=== PATIENT | female | born 1960 | race American Indian/Alaskan Native ===

== ENCOUNTER 2017-07-23 01:02 | Emergency (ER) | payer MEDICARE ==
[2017-07-23 02:31] LABS: Basophils % (Auto) 0.4 % (0.0-1.8); Eosinophils % (Auto) 0.6 % (0.0-4.3); Hematocrit 42.7 % (30.3-42.9); Hemoglobin 14.3 gm/dl (10.1-14.3); Lymphocytes # (Auto) 1.5 K/mm3 (1.2-5.4); Lymphocytes % (Auto) 22.7 % (13.4-35.0); Mean Corpuscular HGB Conc 33 % (30-34); Mean Corpuscular Hemoglobin 28 pg (28-32); Mean Corpuscular Volume 84 fl (79-97); Monocytes # (Auto) 0.5 K/mm3 (0.0-0.8); Monocytes % (Auto) 7.3 % (0.0-7.3); Platelet Count 412 K/mm3 (140-440); Red Blood Count 5.08 M/mm3 (3.65-5.03); Red Cell Distribution Width 16.1 % (13.2-15.2)
[2017-07-23 02:36] LABS: Bilirubin,Urine NEG (Negative); Blood,Urine MOD (Negative); Color,Urine Yellow (Yellow); Mucus,Urine FEW /HPF; Protein,Urine <15 mg/dL mg/dL (Negative); Urobilinogen,Urine < 2.0 mg/dL (<2.0)
[2017-07-23 02:48] LABS: Albumin 4.3 g/dL (3.9-5); Calcium 10.1 mg/dL (8.4-10.2)
[2017-07-23] MEDS ORDERED: ZOFRAN IV ONE (03:18)
[2017-07-23] MEDS ORDERED: MORPHINE IV ONE (03:18)
--- NOTE | 2017-07-23 03:23 | Emergency Department Report ---
HPI - General Chief Complaint: Abdominal Pain Time Seen by Provider: 07/23/17 02:50 - HPI HPI: 56-year-old female presents to the emergency department with complaint of epigastric and/or upper abdominal pain that started this evening around 11 PM. She has some associated nausea with one episode of vomiting. The pain radiates to the back. She denies any fever, dysuria, vaginal bleeding or discharge. No recent travel or sick contacts at home. She has not taken anything for her symptoms prior to presentation. She has a past mental history of diabetes, GERD, gastroparesis, fatty liver disease. Her primary care physician is a Dr. Davis. ED Past Medical Hx - Past Medical History Previous Medical History?: Yes Hx Hypertension: Yes Hx Diabetes: Yes Hx GERD: Yes Hx Arthritis: Yes (OA, RA) Additional medical history: Gastroparesis, Fatty liver, Degenerative disk disease - Surgical History Past Surgical History?: Yes Additional Surgical History: Left Knee Replacement - Social History Smoking Status: Never Smoker - Medications Home Medications: Home Medications Medication Instructions Recorded Confirmed Last Taken Type Omeprazole Magnesium [PriLOSEC Otc] 20 mg PO QDAY #20 tablet. 07/23/17 Unknown Rx ED Review of Systems ROS: Stated complaint: ABD PAIN Other details as noted in HPI Comment: All other systems reviewed and negative Constitutional: denies: chills, fever Eyes: denies: eye pain, eye discharge, vision change ENT: denies: ear pain, throat pain Respiratory: denies: cough, shortness of breath, wheezing Cardiovascular: denies: chest pain, palpitations Gastrointestinal: abdominal pain, nausea, vomiting Genitourinary: denies: urgency, dysuria, discharge Musculoskeletal: back pain. denies: arthralgia Skin: denies: rash, lesions Neurological: denies: headache, weakness, paresthesias Physical Exam - Physical Exam Vital Signs: Vital Signs 07/23/17 07/23/17 07/23/17 01:24 01:30 01:33 Temperature 98.2 F Pulse Rate 73 Blood Pressure 164/83 145/82 O2 Sat by Pulse 99 99 100 Oximetry 07/23/17 01:54 Temperature Pulse Rate Blood Pressure 164/83 O2 Sat by Pulse 68 L Oximetry Physical Exam: GENERAL: The patient is well-developed well-nourished. HENT: Normocephalic. Atraumatic. Patient has moist mucous membranes. EYES: Extraocular motions are intact. Pupils equal reactive to light bilaterally. NECK: Supple. Trachea is midline. CHEST/LUNGS: Clear to auscultation. There is no respiratory distress noted. HEART/CARDIOVASCULAR: Regular. There is no tachycardia. There is no murmur. ABDOMEN: Abdomen is soft. Tenderness palpation to the epigastrium. No guarding. Patient has normal bowel sounds. Obese habitus. SKIN: Skin is warm and dry. NEURO: The patient is awake, alert, and oriented. The patient is cooperative. The patient has no focal neurologic deficits. The patient has normal speech. MUSCULOSKELETAL: There is no tenderness or deformity. There is no limitation range of motion. There is no evidence of acute injury. ED Course Vital Signs 07/23/17 07/23/17 07/23/17 01:24 01:30 01:33 Temperature 98.2 F Pulse Rate 73 Blood Pressure 164/83 145/82 O2 Sat by Pulse 99 99 100 Oximetry 07/23/17 01:54 Temperature Pulse Rate Blood Pressure 164/83 O2 Sat by Pulse 68 L Oximetry ED Medical Decision Making - Lab Data Result diagrams: 07/23/17 02:07 07/23/17 02:07 - EKG Data -: EKG Interpreted by Me EKG shows normal: sinus rhythm, axis, intervals, QRS complexes, ST-T waves Rate: normal - EKG Data When compared to previous EKG there are: previous EKG unavailable Interpretation: normal EKG - Radiology Data Radiology results: report reviewed, image reviewed interpreted by me: Abdominal x-ray shows nonspecific nonobstructive bowel gas. PROCEDURE: US ABDOMEN LIMITED TECHNIQUE: Real-time sonography was performed of the gallbladder with image documentation. CPT 17085 HISTORY: upper abd pain COMPARISON: No prior studies are available for comparison. FINDINGS: The liver is fatty infiltrated. There is no evidence of stones in the gallbladder lumen. The wall thickness is 1.3 millimeters. The common bile duct measures 4.7 millimeters. The portions of the right kidney and pancreas imaged are normal.. IMPRESSION: Fatty infiltration of the liver is noted. The gallbladder is normal. The common bile duct is normal measuring 4.7 millimeters. Transcribed By: [facility] Dictated By: RUDY NI MD Electronically Authenticated By: RUDY NI MD Signed Date/Time: 07/23/17 0406 - Medical Decision Making Patient presented with some acute upper abdominal and epigastric discomfort with one episode of nausea and vomiting. Labs have been unremarkable. Abdominal x-ray does not show any acute process. Abdominal ultrasound shows fatty infiltration of the liver but no cholelithiasis, cholecystitis or any other acute abnormalities. I even considered that this could be some type of atypical coronary event but the EKG is normal without ST elevation [place], ischemia or dysrhythmia and she had a negative troponin. The patient was given some Zofran and low-dose pain medication and upon reevaluation she is feeling greatly improved. She will follow up with her primary care physician and has been given a referral for gastroenterology. She will return to the ER with any worsening symptoms or any acute distress. - Differential Diagnosis cholelithiasis, cholecystitis, pancreatitis, hepatitis, gastritis Critical Care Time: No Critical care attestation.: If time is entered above; I have spent that time in minutes in the direct care of this critically ill patient, excluding procedure time. ED Disposition Clinical Impression: Nonalcoholic fatty liver disease Abdominal pain Qualifiers: Abdominal location: upper abdomen, unspecified Qualified Code(s): R10.10 - Upper abdominal pain, unspecified Disposition: DC-01 TO HOME OR SELFCARE Is pt being admited?: No Condition: Stable Instructions: Abdominal Pain (ED) Additional Instructions: Please follow-up with your primary care physician. I have given her a referral for a local concrete buster operator, Dr. Monet, to follow up regarding her abdominal pain. Return to the emergency Department with any worsening of her symptoms or any acute distress. Prescriptions: Omeprazole Magnesium [PriLOSEC Otc] 20 mg PO QDAY #20 tablet. Referrals: LAYNE DAVIS MD [Primary Care Provider] - 3-5 Days BEV MONET MD [Staff Physician] - 3-5 Days Time of Disposition: 06:27
--- NOTE | 2017-07-23 04:11 | Ultrasound Report ---
FINAL REPORT PROCEDURE: US ABDOMEN LIMITED TECHNIQUE: Real-time sonography was performed of the gallbladder with image documentation. CPT 07562 HISTORY: upper abd pain COMPARISON: No prior studies are available for comparison. FINDINGS: The liver is fatty infiltrated. There is no evidence of stones in the gallbladder lumen. The wall thickness is 1.3 millimeters. The common bile duct measures 4.7 millimeters. The portions of the right kidney and pancreas imaged are normal.. IMPRESSION: Fatty infiltration of the liver is noted. The gallbladder is normal. The common bile duct is normal measuring 4.7 millimeters.
--- NOTE | 2017-07-23 04:12 | XRay Report ---
FINAL REPORT PROCEDURE: XR ABDOMEN 2V TECHNIQUE: Abdominal series, including supine and upright AP views. HISTORY: abd pain COMPARISON: No prior studies are available for comparison. FINDINGS: Bowel gas pattern:Nonobstructive . Masses or calcifications:None . Bony structures:No significant abnormality . Pneumoperitoneum:None . Other:No significant findings . IMPRESSION: No acute abnormality.
[2017-07-23 05:58] VITALS: BP 119/52
== END 2017-07-23 06:37 | disposition home or self-care (01) ==
LOC: ED 01:02
DX: K76.0 Fatty (change of) liver, not elsewhere classified (principal); R11.2 Nausea with vomiting, unspecified; I10 Essential (primary) hypertension; E11.9 Type 2 diabetes mellitus without complications; K21.9 Gastro-esophageal reflux disease without esophagitis; M06.9 Rheumatoid arthritis, unspecified; Z88.0 Allergy status to penicillin; Z88.2 Allergy status to sulfonamides; Z88.8 Allergy status to other drugs, medicaments and biological substances; Z96.652 Presence of left artificial knee joint
CPT/HCPCS: 36415; 74019; 76705; 80053; 81001; 83690; 84484; 85025; 93005; 93010; 96374; 96375; 99285; J2270; J2405